=== PATIENT | female | born 1990 | race Caucasian/White ===

== ENCOUNTER 2018-08-09 19:58 | Emergency (ER) | payer MEDICAID ==
[~2018-08-09] VITALS: Ht 162.6 cm; Wt 89.4 kg
[2018-08-09 20:04] VITALS: BP 131/76
--- NOTE | 2018-08-09 20:10 | NUR ---
PT TAKEN TO BED 3
--- NOTE | 2018-08-09 20:21 | NUR ---
PT BIB SELF C/O COUGH/FEVER X 3 DAYS. PT IS AFEBRILE AT THIS TIME. PT DENIES N/V/D; SKIN IS INTACT, PINK/WARM/DRY; AAOX4, PERRL, WITH EVEN AND STEADY GAIT; LUNGS CLEAR BL, WITH A LIGHT DRY COUGH NOTED BY PT FOR 3DAYS. BREATHING UNLABORED; HR EVEN AND REGULAR, BL PERIPHERAL PULSES PRESENT; BS ACTIVE X4, NO TENDERNESS TO PALPATION. PT DENIES ANY FEVER, CP, SOB, OR COUGH AT THIS TIME; PT STATES 0/10 PAIN AT THIS TIME; VSS; PATIENT POSITIONED FOR COMFORT; HOB ELEVATED; BEDRAILS UP X2; BED DOWN.
--- NOTE | 2018-08-09 20:23 | NUR ---
ER AT BEDSIDE
[2018-08-09 20:35] VITALS: BP 108/72
--- NOTE | 2018-08-09 20:35 | NUR ---
Patient discharged with v/s stable. Written and verbal after care instructions given and explained. Patient alert, oriented and verbalized understanding of instructions. Ambulatory with steady gait. All questions addressed prior to discharge. ID band removed. Patient advised to follow up with PMD. Rx of PROMETHAZINE HYDROCHLORIDE/DEXTROMETHORPHAN 6.25MG-15MG/5ML given. Patient educated on indication of medication including possible reaction and side effects. Opportunity to ask questions provided and answered.
== END 2018-08-09 20:35 | disposition home or self-care (01) ==
LOC: MED 19:58
DX: J06.9 Acute upper respiratory infection, unspecified (principal); Z88.5 Allergy status to narcotic agent; Z88.6 Allergy status to analgesic agent; Z88.1 Allergy status to other antibiotic agents
CPT/HCPCS: 99283